=== PATIENT | male | born 1975 | race Caucasian/White ===

== ENCOUNTER 2017-07-17 13:08 | Emergency (ER) | payer MEDICAID ==
[~2017-07-17] VITALS: Ht 182.9 cm; Wt 135.4 kg
[2017-07-17 13:14] VITALS: BP 131/101
--- NOTE | 2017-07-17 13:22 | NUR ---
PT AMBULATES TO BED 1
--- NOTE | 2017-07-17 13:22 | NUR ---
PT AMBULATED YO BED 1 HE COMES TO ER WITH C/O OF 10/10 RECTAL PAIN THAT STARTED ON FRIDAY (5 DAYS). PT THINKS HE MAY HAVE HEMMORRIODS BUT HE HAS NOT EXPERINECE ANY BLEEDING. PAIN IS SHARP AND CONSISTANT AND IS RELIEVED WITH CHANGE OF POSITION. HE SAID THAT HE FEELS THE AREA SWOLLEN AND THEY TRIED USING OVER THE COUNTER HEMMRROID SUPPOSITORY WITH MINIMAL SUCCESS. PT HAD BM YESTERDAY.
--- NOTE | 2017-07-17 13:54 | NUR ---
DR BLAIR EVALUATING PT AT THIS TIME.
[2017-07-17 15:11] VITALS: BP 144/87
--- NOTE | 2017-07-17 15:12 | NUR ---
Patient discharged with v/s stable. Written and verbal after care instructions given and explained. Patient alert, oriented and verbalized understanding of instructions. Ambulatory with steady gait. All questions addressed prior to discharge. ID band removed. Patient advised to follow up with PMD. Rx of ANSUL RECTAL CREAM, NORCO 5/325MG COLACE given. Patient educated on indication of medication including possible reaction and side effects. Opportunity to ask questions provided and answered.
== END 2017-07-17 14:55 | disposition home or self-care (01) ==
LOC: MED 13:08
DX: K64.9 Unspecified hemorrhoids (principal)
CPT/HCPCS: 99283

== ENCOUNTER 2019-10-18 19:37 | Inpatient (IN) | payer MEDICAID, SELFPAY ==
[~2019-10-18] VITALS: Ht 182.9 cm; Wt 128.8 kg
[2019-10-18 19:56] VITALS: BP 125/92
--- NOTE | 2019-10-18 19:59 | NUR ---
PT AMBULATED TO BED 11 WITH STEADY GAIT.
--- NOTE | 2019-10-18 20:10 | NUR ---
44 Y/O MALE PRESENTED TO ED C/O RECTAL PAIN X 2 DAYS , 10/10 SHARP PAIN UPON MOV'MT. PT DENIES BLOOD IN STOOL. PT STATES HE HAS HAD HEMORRHOIDS BEFORE AND WOULD TAKE PREPH W/ RELIEF. HE CURRENTLY TRIED USING PREPH W/ NO RELIEF. PT DENIES N/V/D/FEVER. PT TOOK TYLENOL AND A PILL FROM HIS BROTHER BUT HE IS UNAWARE OF WHAT IT WAS. PT IN GOWN, RESTING IN BED , LOCKED AND IN LOWEST POSITION, HOB ELEVATED, SIDE RAIL X1 , RR EVEN AND UNLABORED, A/OX4. PMH: GEGE MEJIA
--- NOTE | 2019-10-18 20:56 | NUR ---
Dr. Beaver examining patient.
--- NOTE | 2019-10-18 20:56 | NUR ---
ERMD AT BEDSIDE FOR EVALUATION.
[2019-10-18] MEDS ORDERED: HYDROcodone/APAP 10/325 MG 1 TAB TAB PO STA (21:04)
[2019-10-18] MEDS ORDERED: FLUCONAZOLE 100 MG TAB PO ONE (21:05)
[2019-10-18 21:32] LABS: BASOPHILS % (AUTO) 0.5 % (0.0-2.0); EOSINOPHILS # (AUTO) 0.1 K/uL (0-0.4); EOSINOPHILS % (AUTO) 0.8 % (0.0-4.0); HEMATOCRIT 45.8 % (36-52); HEMOGLOBIN 15.5 g/dL (12.0-18.0); LYMPHOCYTES # (AUTO) 2.1 K/uL (2.0-11.5); LYMPHOCYTES % (AUTO) 24.8 % (20.5-51.1); MEAN CORPUSCULAR HEMOGLOBIN 28 pg (27-31); MEAN CORPUSCULAR HGB CONC 34 g/dL (33-37); MEAN CORPUSCULAR VOLUME 83.1 fL (80-94); MONOCYTES # (AUTO) 0.8 K/uL (0.8-1.0); MONOCYTES % (AUTO) 9.7 % (1.7-9.3); NEUTROPHILS # (AUTO) 5.4 K/uL (1.8-7.7); NEUTROPHILS % (AUTO) 64.2 % (42.2-75.2); PLATELET COUNT (AUTO) 197 K/uL (140-450); RED CELL DISTRIBUTION WIDTH 13.2 % (11.6-13.7); WHITE BLOOD COUNT (AUTO) 8.5 K/uL (4.8-10.8)
--- NOTE | 2019-10-18 21:43 | NUR ---
PT EDUCATED ON CT CONTRACT , CONSENT FORM SIGNED.
[2019-10-18 22:09] LABS: ALBUMIN 3.1 g/dL (3.4-5.0); ANION GAP 15.8 (8-16); CARBON DIOXIDE 24.6 mmol/L (21-32); POTASSIUM 3.4 mmol/L (3.5-5.1); TOTAL BILIRUBIN 0.4 mg/dL (0.0-1.0)
--- NOTE | 2019-10-18 22:11 | NUR ---
PT AMBULATED TO RESTROOM W/ STEADY GAIT.
--- NOTE | 2019-10-18 22:14 | NUR ---
RECEIVED CRITICAL LAB - GLUCOSE 423 , ERMD MADE AWARE.
--- NOTE | 2019-10-18 22:33 | NUR ---
PT TAKEN TO CT VIA W/C
--- NOTE | 2019-10-18 22:44 | NUR ---
PT RETURNED FROM CT VIA W/C.
--- NOTE | 2019-10-18 22:49 | NUR ---
PT RESTING IN BED , LOCKED AND IN LOWEST POSITION, HOB ELEVATED , SIDE RAIL X1 . PT PROVIDED WATER FOR COMFORT.
--- NOTE | 2019-10-18 22:57 | NUR ---
DR. KISER AT BEDSIDE FOR RE EVALUATION.
[2019-10-18] MEDS ORDERED: MORPHINE SULFATE 4 MG/ML SYR IVP ONE (23:00)
[2019-10-18] MEDS ORDERED: INSULIN REGULAR, HUMAN 100 UNIT/ML VIAL IVP ONE (23:35)
[2019-10-18] MEDS ORDERED: PIPERACILLIN/TAZOBACTAM 3.375 GM in DEXTROSE 5% 50 ML IV ONE (23:40)
[2019-10-18] MEDS ORDERED: metroNIDAZOLE 500 MG/NS PREMIX 100 ML IV ONE (23:40)
[2019-10-18] MEDS ORDERED: PIPERACILLIN/TAZOBACTAM 3.375 GM VIAL IV ONE (23:50)
[2019-10-19] MEDS ORDERED: NACL 0.9% 1,000 ML IV ONE
--- NOTE | 2019-10-19 | NUR ---
MADE ROUNDS , DENIES ANY PAIN . RESTING ON BED COMFORTABLY . CALL LIGHT WITHIN REACH.
[2019-10-19] MEDS ORDERED: INSU100I24 SQ (00:12)
[2019-10-19] MEDS ORDERED: ACET1TAB93 PO (00:12)
--- NOTE | 2019-10-19 00:53 | NUR ---
PT RESTING IN BED , LOCKED AND IN LOWEST POSITION ,HOB ELEVATED , SIDE RAIL X1 . RR EVEN AND UNLABORED, VISIBLE RISE AND FALL OF CHEST , AROUSABLE BY VERBAL STIMULATION , VSS.
--- NOTE | 2019-10-19 00:58 | NUR ---
COVID SWAB COLLECTED AND WALKED TO LAB.
--- NOTE | 2019-10-19 01:48 | NUR ---
PT COMPLAINING OF 10/10 PAIN -- PAGED DR ODOM, ORDERS RECEIVED FOR 2MG MORPHINE Q4H PRN SEVERE PAIN(7-10)
[2019-10-19] MEDS ORDERED: MORPHINE SULFATE 2 MG/ML SYR IVP PRN ×2 (01:50→13:05)
--- NOTE | 2019-10-19 02:37 | NUR ---
PT COMPLAINING OF NO RELIEF AFTER MORPHINE ADMINISTRATION , RATES CURRENTLY AT 10/10 PAIN -- PAGED DR ODOM, ORDERS RECEIVED FOR 1MG DILAUDID IVP ONE TIME DOSE FOR (SEVERE PAIN 7 - 10).
[2019-10-19] MEDS ORDERED: HYDROmorphone 1 MG/ML AMP IVP PRN (02:40)
[2019-10-19] MEDS ORDERED: HYDROmorphone 1 MG/ML AMP ONE (02:48)
--- NOTE | 2019-10-19 03:08 | NUR ---
PER DR. ODOM ORDERS, ADMINISTERED DILAUDID 1MG IVP , ONE TIME DOSE FOR PT PAIN 01/07.
--- NOTE | 2019-10-19 03:26 | NUR ---
PT STATED DILAUDID MEDICATION HAS HELPED A LITTLE W/ PAIN , CURRENTLY RATES PAIN 8/10. PT RESTING IN BED, LOCKED AND IN LOWEST POSITION, HOB ELEVATED, SIDE RAIL X1 , RR EVEN AND UNLABORED.
--- NOTE | 2019-10-19 04:17 | NUR ---
PT MOVED TO 101A ER OVERFLOW
--- NOTE | 2019-10-19 04:19 | NUR ---
REPORT GIVEN TO LILIA PHELPS FOR TRANSFER OF CARE.
[2019-10-19] MEDS ORDERED: MORPHINE SULFATE 4 MG/ML SYR IVP PRN (04:20)
--- NOTE | 2019-10-19 04:20 | NUR ---
RECIEVED REPORT BY LILIA DE LOS SANTOS. TRANSFER OF CARE AT THIS TIME.
--- NOTE | 2019-10-19 05:17 | NUR ---
PT SLEEPING IN BED. EQUAL CHEST RISE AND FALL. ALL PT NEEDS MET AT THIS TIME.
[2019-10-19] MEDS ORDERED: DEXTROSE 50% 50 ML SYR IVP PRN (07:20)
--- NOTE | 2019-10-19 07:32 | NUR ---
RECEIVED REPORT FROM LILIA STUBBS ,PT IN BED WITH STABLE V/S. C/O RECTAL PAIN 11/07.
--- NOTE | 2019-10-19 07:41 | NUR ---
INSUFFICIENT DATA IN MEDICAL CHART FOR RD TO SCREEN AND CATEGORIZE NUTRITIONAL RISK (NO H&P, NO RD I/A, NO ROBIN SCORE, NO DIET, ETC...). PATIENT IS NUTRITION SCREEN DUE WITHIN 2 DAYS OF ADMISSION 10/20/19 DAHLIA BAI MBA, RD
[2019-10-19] MEDS: BLOOD GLUCOSE MONITORING 1 DEV DEV FS SCH ×4 (08:58→22:00)
--- NOTE | 2019-10-19 09:30 | NUR ---
pt cellphone charge at nurses station natalia khan made aware.
--- NOTE | 2019-10-19 10:30 | NUR ---
returned charge cellphone to pt at bedside.
[2019-10-19 10:45] VITALS: BP 108/74
--- NOTE | 2019-10-19 10:45 | NUR ---
Patient will be admitted to care of Dr kimble. Admited to M/S. Will go to room 119B. Belongings list completed. Report to ntaalia morrison.
--- NOTE | 2019-10-19 10:45 | NUR ---
to M/S with 250 ml left ivf fluids ,natalia morrison informed and aware.
--- NOTE | 2019-10-19 10:45 | NUR ---
RECEIVED PATIENT FROM ER NURSE, TRUDY, VIA REI. PATIENT ABLE TO AMBULATE TO BED. AAOX4, ABLE TO MAKE NEEDS KNOWN AND FOLLOW COMMANDS. IV SITE PRESENT ON THE RIGHT AC 20G, IVF RUNNING PER ORDERS. RESPIRATIONS EVEN AND UNLABORED, NO COMPLAINS OF SOB OR COUGHING, ON ROOM AIR WITH SAO2 98%. V/S TAKEN AND IS WNL. SKIN INTACT, SMALL RECTAL BLEEDING NOTED. PATIENT PLACED ON NPO EXCEPT MEDS. SAFETY PRECAUTIONS IN PLACE. DROPLET ISOLATION FOR R/O COVID-19 OBSERVED BY ALL STAFF. PATIENT ORIENTED WITH ROOM, AND POC DISCUSSED. PATIENT VERBALIZES UNDERSTANDING. WILL CONTINUE TO MONITOR.
--- NOTE | 2019-10-19 11:00 | NUR ---
MRSA SWAB TAKEN, NO SIGNS OF DISTRESS NOTED. WILL CONTINUE TO MONITOR.
--- NOTE | 2019-10-19 11:11 | NUR ---
MIXING MACHINE TENDER CORK ROD NOTE: Patient's Orientation Unable To Assess Information Provided By WILLY LUU - Comments SW WAS UNABLE TO MEET PATIENT AT BEDSIDE DUE TO MEDICAL CONDITION. Aircraft Painter, Realtionship and Phone Number WILLY LUU [phone] Healthcare Power of Horticultural Farmer No Does Patient Have a POLST No Identifying Problems No Social Work Triggers Is A Social Work Consult Needed No Mandate Report Filed No Explanation Of Identifying Problems PATIENT IS A 44-YEAR-OLD MALE ADMITTED FOR PERIRECTAL ABSCESS. PATIENT HAS PMHX OF CARPAL TUNNEL SYNDROME, AND SYNDROME DIABETES. Admitted From Home Pre-Admission Level Of Functioning Status Independent/Ambulatory Prior Resources/Services Used In Last 12 Months No Prior Resources Used Prior DME No Prior DME Used Living Situation Lives With Family House Patient Had Caregiver No Home Support No Caregiver Issues Financial Issues No Known Financial Issue Referral To The Financial Counselor Needed No Factors/Needs No D/C Needs Identified Pt/Rep Participated In Discharge Plan Yes Patient/Family Agress With Discharge Plan Yes Discharge Plan Comments TENTATIVE DISCHARGE PLAN IS FOR PATIENT TO RETURN HOME. DC Plan Status Initiated
[2019-10-19] MEDS: INSULIN LISPRO SLIDING SCALE 100 UNITS/ML VIAL SUBQ PRN ×3 (12:37→22:38)
--- NOTE | 2019-10-19 12:37 | NUR ---
6 UNITS OF INSULIN GIVEN FOR BLOOD GLUCOSE OF 263. NO SIGNS OF DISTRESS NOTED. WILL CONTINUE TO MONITOR.
[2019-10-19] MEDS ORDERED: ZOLPIDEM 5 MG TAB PO PRN (13:05)
[2019-10-19] MEDS ORDERED: ACETAMINOPHEN 325 MG TAB PO PRN (13:05)
[2019-10-19] MEDS ORDERED: DOCUSATE SODIUM 100 MG GELCAP PO PRN (13:05)
[2019-10-19] MEDS ORDERED: HYDROcodone/APAP 5/325 MG 1 TAB TAB PO PRN (13:05)
[2019-10-19] MEDS ORDERED: LORazepam 2 MG/ML VIAL IM/IVP PRN (13:05)
[2019-10-19] MEDS ORDERED: ONDANSETRON 4 MG/2 ML VIAL IM/IVP PRN (13:05)
[2019-10-19] MEDS ORDERED: INSU100S22 SUBQ (13:24)
[2019-10-19] MEDS ORDERED: INSU100S45 SUBQ (13:24)
[2019-10-19 13:52] LABS: APPEARANCE,URINE CLEAR (CLEAR); BILIRUBIN,URINE 1+ (NEGATIVE); BLOOD, URINE NEGATIVE (NEGATIVE); COLOR,URINE YELLOW (YELLOW); LEUKOCYTE ESTERASE ,URINE NEGATIVE (NEGATIVE); NITRITE, URINE NEGATIVE (NEGATIVE); UGLUCOSE 3+ (NEGATIVE)
[2019-10-19 14:04] LABS: BARBITURATE, URINE NEGATIVE ng/ml (NEG <=200); BENZODIAZEPINE, URINE NEGATIVE ng/mL (NEG <=200); CANNABINOID, URINE NEGATIVE ng/mL (NEG <=50); COCAINE, URINE NEGATIVE ng/mL (NEG <=300); OPIATE, URINE POSITIVE ng/mL (NEG <=2000); PHENCYCLIDINE SCREEN,URINE NEGATIVE ng/mL (NEG <=25)
[2019-10-19 14:22] LABS: CHOL/HDL RATIO 5.1 (1-4.5); THYROID STIMULATING HORMONE 1.8 uIU/mL (0.34-3.74)
[2019-10-19] MEDS: metroNIDAZOLE 500 MG/NS PREMIX 100 ML IV SCH ×2 (14:31→23:00)
[2019-10-19] MEDS: NACL 0.9% 1,000 ML IV SCH ×2 (14:31→23:02)
[2019-10-19 14:44] LABS: PROTHROMBIN TIME 9.9 secs (10.8-13.4)
[2019-10-19 16:00] VITALS: BP 124/75
[2019-10-19] MEDS: PIPERACILLIN/TAZOBACTAM 3.375 GM in DEXTROSE 5% 50 ML IV SCH ×2 (16:51→22:00)
--- NOTE | 2019-10-19 16:51 | NUR ---
2 UNITS OF INSULIN GIVEN FOR BLOOD GLUCOSE OF 193. NO SIGNS OF DISTRESS NOTED. AFTERNOON MEDICATIONS GIVEN AND CONTINUES TO RUN IVPB. V/S TAKEN AND IS WNL. WILL CONTINUE TO MONITOR.
[2019-10-19] MEDS ORDERED: INSULIN ASPART 25 UNIT SUBQ SCH (17:00)
--- NOTE | 2019-10-19 18:10 | NUR ---
DR. HERBERT BY THE BEDSIDE. NOTED DRAINAGE OF PERIRECTAL ABSESS. DR. HERBERT STATES THAT SURGERY IS NOT NEEDED IF ABSESS CONTINUES TO DRAIN BUT TO CONTINUE GIVEN ANTIBIOTICS FOR 2-3 DAYS. WILL FOLLOW THROUGH. WILL CONTINUE TO MONITOR.
--- NOTE | 2019-10-19 19:15 | NUR ---
ENDORSED TO HAND WEAVER NURSE FOR CONTINUITY OF CARE.
--- NOTE | 2019-10-19 19:15 | NUR ---
RECEIVED PT AAOX4 , NID - O2 SAT WNL . IV SITE INTACT AND PATENT . DENIES ANY PAIN AT THIS TIME . SAFETY MEASURES IN PLACE . PLAN OF CARE DISCUSSED AND VERBALIZE UNDERSTANDING . PER AM NURSE PT SEEN BY DR. HERBERT - ACCORDING TO DR. HERBERT - PT NO NEED FOR SUGERY , ONLY ANTIBIOTIC - WILL INFORM DR. VELEZ ABOUT IT FOR FURTHER ORDERS . PT IS NPO .
[2019-10-19 20:00] VITALS: BP 122/81
[2019-10-19] MEDS ORDERED: ALBUTEROL HFA MDI 90 MCG/ACTUATION 8 GM INH PRN (20:10)
--- NOTE | 2019-10-19 20:30 | NUR ---
INFORM DR. VELEZ ABOUT THE DIET ORDER FOR PT . PT. STILL NPO .
--- NOTE | 2019-10-19 20:55 | NUR ---
DR. VELEZ TEXTBACK - [facility] - ORDERED BY DR. VELEZ - WILL CARRY OUT .
[2019-10-19] MEDS ORDERED: NON-FORMULARY ITEM (Insulin Glargine,Hum.rec.anlog (Lantus Solostar) 30 UNIT) SUBQ SCH (21:00)
[2019-10-19] MEDS ORDERED: INSULIN LANTUS 100 UNITS/ML 10 ML VIAL SUBQ SCH (21:00)
[2019-10-19] MEDS ORDERED: FLUCONAZOLE 200 MG/NS PREMIX 100 ML IV SCH (21:00)
[2019-10-19] MEDS: ZINC SULF 220 MG CAP PO SCH (21:47)
--- NOTE | 2019-10-19 22:00 | NUR ---
[facility] FOOD - NO COMPLAIN MADE .
[2019-10-20] VITALS: BP 121/82
--- NOTE | 2019-10-20 | NUR ---
MADE ROUNDS , NO S/SX OF ACUTE DISTRESS NOTED AT THIS TIME . CALL LIGHT WITHIN REACH.
--- NOTE | 2019-10-20 02:00 | NUR ---
SLEEPING - CHEST RISE AND FALL EQUALLY . CALL LIGHT WITHIN REACH
[2019-10-20 04:00] VITALS: BP 120/85
--- NOTE | 2019-10-20 04:00 | NUR ---
MADE ROUNDS , NO S/SX OF ACUTE DISTRESS NOTED AT THIS TIME . WILL CONT. TO MONITOR.
[2019-10-20] MEDS: PIPERACILLIN/TAZOBACTAM 3.375 GM in DEXTROSE 5% 50 ML IV SCH (05:17)
[2019-10-20 05:53] LABS: BASOPHILS % (AUTO) 0.3 % (0.0-2.0); EOSINOPHILS % (AUTO) 0.4 % (0.0-4.0); HEMATOCRIT 44.8 % (36-52); LYMPHOCYTES # (AUTO) 2.2 K/uL (2.0-11.5); LYMPHOCYTES % (AUTO) 30.7 % (20.5-51.1); MEAN CORPUSCULAR HEMOGLOBIN 28 pg (27-31); MEAN CORPUSCULAR HGB CONC 34 g/dL (33-37); MEAN CORPUSCULAR VOLUME 83.4 fL (80-94); MONOCYTES # (AUTO) 0.9 K/uL (0.8-1.0); MONOCYTES % (AUTO) 12.4 % (1.7-9.3); NEUTROPHILS # (AUTO) 4.1 K/uL (1.8-7.7); NEUTROPHILS % (AUTO) 56.2 % (42.2-75.2); PLATELET COUNT (AUTO) 190 K/uL (140-450); RED BLOOD CELL COUNT(AUTO) 5.38 MIL/uL (4.20-6.10); RED CELL DISTRIBUTION WIDTH 13.1 % (11.6-13.7); WHITE BLOOD COUNT (AUTO) 7.2 K/uL (4.8-10.8)
--- NOTE | 2019-10-20 06:00 | NUR ---
NO COMPLAIN MADE - CALL LIGHT WITHIN REACH
[2019-10-20 06:11] LABS: ALBUMIN 2.9 g/dL (3.4-5.0); ANION GAP 14.2 (8-16); POTASSIUM 3.2 mmol/L (3.5-5.1); TOTAL BILIRUBIN 0.5 mg/dL (0.0-1.0)
[2019-10-20 06:12] LABS: MAGNESIUM 1.8 mg/dL (1.8-2.4); PHOSPHORUS 3.4 mg/dL (2.5-4.9)
[2019-10-20] MEDS: metroNIDAZOLE 500 MG/NS PREMIX 100 ML IV SCH (06:18)
[2019-10-20] MEDS: BLOOD GLUCOSE MONITORING 1 DEV DEV FS SCH ×2 (06:28→12:12)
[2019-10-20] MEDS: INSULIN LISPRO SLIDING SCALE 100 UNITS/ML VIAL SUBQ PRN ×2 (06:45→13:26)
--- NOTE | 2019-10-20 07:16 | NUR ---
ENDORSED - PT - STABLE .
--- NOTE | 2019-10-20 07:16 | NUR ---
RECEIVED REPORT FROM FISHERIES SPECIALIST NURSE. PT IN BED. AOX4, NO C/O PAIN, NO SOB, RESPIRATIONS ARE EVEN AND UNLABORED. ON ROOM AIR. SKIN IS INTACT. PT IS AMBULATORY. WITH IV ON RAC 20G RUNNING NS AT 100ML/HR. SAFETY PRECAUTIONS IN PLACE. ISOLATION PRECAUTION OBSERVED. CALL LIGHT WITHIN REACH. WILL CONTINUE TO MONITOR
--- NOTE | 2019-10-20 07:16 | NUR ---
ENDORSED TO AM SHIFT - PT- STABLE .
[2019-10-20 08:00] VITALS: BP 128/79
[2019-10-20] MEDS: ZINC SULF 220 MG CAP PO SCH (08:22)
[2019-10-20] MEDS: NACL 0.9% 1,000 ML IV SCH (08:22)
--- NOTE | 2019-10-20 08:45 | NUR ---
DUE MORNING MEDS GIVEN. TOLERATED PO MEDS WELL
[2019-10-20] MEDS ORDERED: VITAMIN D 400 IU TAB PO SCH (09:00)
[2019-10-20] MEDS ORDERED: ASCORBIC ACID 500 MG TAB PO SCH (09:00)
[2019-10-20] MEDS ORDERED: POTASSIUM CHLORIDE 10 MEQ TABER PO PRN (11:40)
[2019-10-20] MEDS ORDERED: MAG SULF 2000 MG/WATER PREMIX 50 ML IV PRN (11:40)
[2019-10-20] MEDS ORDERED: DEXA6TAB1 PO (11:41)
[2019-10-20] MEDS ORDERED: DOXY100C9 PO (11:41)
[2019-10-20] MEDS ORDERED: VITC500 PO (11:41)
[2019-10-20] MEDS ORDERED: VIT1TABL36 PO (11:47)
[2019-10-20] MEDS ORDERED: ZINC220C28 PO (11:54)
--- NOTE | 2019-10-20 12:00 | NUR ---
BLOOD SUGAR 375. COVERAGE GIVEN
[2019-10-20] MEDS ORDERED: ASPI-1822 PO (12:19)
--- NOTE | 2019-10-20 13:30 | NUR ---
DISCHARGE ORDER NOTED. DISCHARGE INSTRUCTIONS AND PRESCRIPTION GIVE. DOCTOR'S NOTE GIVEN. EDUCATION PACKET ABOUT DM GIVEN. PT VERBALIZED UNDERSTANDING. IV REMOVED WITH LUMEN INTACT. ID BAND REMOVED. PT WILL BE PICKED UP BY VIA PRIVATE VEHICLE
--- NOTE | 2019-10-20 13:39 | NUR ---
10/20/19 RD INITIAL ASSESSMENT COMPLETED PLEASE REFER TO NUTRITION ASSESSMENT UNDER CARE ACTIVITY FOR ESTIMATED NUTRITIONAL NEEDS. [facility]. [facility]. RD PROVIDED NUTRITION EDUCATION ON DIABETES. PT ACCEPTED 3. RECOMMEND GLUCERNA ONCE DAILY 4. RD TO FOLLOW-UP 5-7 DAYS, LOW RISK CHAD DELCID RD
--- NOTE | 2019-10-20 14:30 | NUR ---
PICKED UP BY . PT STABLE UPON DISCHARGE
--- NOTE | 2019-10-20 16:00 | NUR ---
PT REFUSED BLOOD DRAW FOR BMP
[2019-10-21] MEDS ORDERED: FLUCONAZOLE 200 MG/NS PREMIX 100 ML IV SCH (01:00)
== END 2019-10-20 14:40 | disposition home or self-care (01) | DRG 137 ==
LOC: MED 19:37 → EEVIPCON 10-19 00:01 → MMU 10-19 00:01 → MTU 10-19 10:00
DX: U07.1 COVID-19 (principal); K61.0 Anal abscess; E11.65 Type 2 diabetes mellitus with hyperglycemia; E87.6 Hypokalemia; E44.1 Mild protein-calorie malnutrition; Z68.38 Body mass index [BMI] 38.0-38.9, adult; B37.49 Other urogenital candidiasis; G56.00 Carpal tunnel syndrome, unspecified upper limb; Z87.891 Personal history of nicotine dependence; Z91.14 Patient's other noncompliance with medication regimen
CPT/HCPCS: 36415; 71045; 80053; 80305; 81003; 82150; 82948; 83036; 83605; 83615; 83690; 83735; 83880; 84100; 84134; 84443; 85025; 85379; 85610; 85651; 85730; 86140; 87081; 96365; 96367; 96375; 99285; J1170; J1450; J1815; J2270; J2543; J3490; J7030; J7060; Q0092; Q9967; U0003-CS